=== PATIENT | male | born 1985 | race Caucasian/White ===

== ENCOUNTER → 2019-04-12 | Outpatient (CLI) | payer OTHER | LOC: M.PUL 16:00 | DX: J45.909 Unspecified asthma, uncomplicated (principal) ==

== ENCOUNTER → 2021-01-22 | Outpatient (CLI) | payer OTHER ==
--- NOTE | 2021-01-22 14:31 | 2DMMODE ---
[place] [address] 2 D/M-MODE ECHOCARDIOGRAM Name: BENJAMIN BRO Room: [facility]#: [id number] Admission: 01/22/21 Attend Phys: Archie Cervantes Discharge: Date of : 85 Date of Service: 01/22/21 1431 Report #: [id number] THIS REPORT FOR: cc: Cody Gee MD, Rajesh MD Blick, David R. MD [facility] ~ APPROVED REPORT Study performed: 01/22/2021 11:29:49 EXAM: Comprehensive 2D, Doppler, and color-flow Echocardiogram Patient Location: Out-Patient BSA: 2.30 HR: 65 bpm BP: 120/70 mmHg Other Information Study Quality: Good Indications Palpitations 2D Dimensions IVSd: 11.00 (7-11mm) LVOT Diam: 20.32 (18-24mm) LVDd: 41.99 mm PWd: 9.99 (7-11mm) Ascending Ao: 27.64 (22-36mm) LVDs: 23.49 (25-40mm) Aortic Root: 27.37 mm Volumes Left Atrial Volume (Systole) LA ESV Index: 16.60 mL/m2 Aortic Valve AoV Peak Jeffrey.: 1.10 m/s AO Peak Gr.: 4.84 mmHg LVOT Max P.73 mmHg AO Mean Gr.: 2.89 mmHg LVOT Mean P.77 mmHg LVOT Max V: 0.97 m/s AO V2 VTI: 24.39 cm LVOT Mean V: 0.61 m/s MICHELLE (VTI): 2.81 cm2 LVOT V1 VTI: 21.15 cm Mitral Valve E/A Ratio: 1.43 [place] [address] 2 D/M-MODE ECHOCARDIOGRAM Name: BENJAMIN BRO Room: [facility]#: [id number] Admission: 01/22/21 Attend Phys: Archie Cervantes Discharge: Date of : 85 Date of Service: 01/22/21 1431 Report #: [id number] MV Decel. Time: 194.76 ms MV E Max Jeffrey.: 0.72 m/s MV PHT: 56.48 ms MVA (PHT): 3.90 cm2 TDI E/Lateral E': 5.54 E/Medial E': 4.80 Medial E' Jeffrey.: 0.15 m/s Lateral E' Jeffrey.: 0.13 m/s Pulmonary Valve PV Peak Jeffrey.: 0.83 m/s PV Peak Gr.: 2.74 mmHg Tricuspid Valve RAP Estimate: 5.00 mmHg TR Peak Gr.: 16.27 mmHg RVSP: 21.27 mmHg PA Pressure: 21.27 mmHg Left Ventricle The left ventricle is normal size. There is normal LV segmental wall motion. There is normal left ventricular wall thickness. Left ventricular systolic function is normal. The left ventricular ejection fraction is within the normal range. LVEF is 55-60%. The left ventricular diastolic function is normal. Right Ventricle The right ventricle is normal size. The right ventricular systolic function is normal. Atria The left atrium size is normal. The right atrium size is normal. Aortic Valve The aortic valve is normal in structure. No aortic regurgitation is present. There is no aortic valvular stenosis. Mitral Valve The mitral valve is normal in structure. Mild mitral regurgitation. No evidence of mitral valve stenosis. Tricuspid Valve The tricuspid valve is normal in structure. Mild tricuspid regurgitation. Pulmonic [place] [address] 2 D/M-MODE ECHOCARDIOGRAM Name: BENJAMIN BRO Room: [facility]#: [id number] Admission: 01/22/21 Attend Phys: Archie Cervantes Discharge: Date of : 85 Date of Service: 01/22/21 1431 Report #: [id number] The pulmonary valve is normal in structure. There is no pulmonic valvular regurgitation. Great Vessels The aortic root is normal in size. IVC is normal in size and collapses >50% with inspiration. Pericardium There is no pericardial effusion. <Conclusion> LVEF is 55-60%. Mild mitral regurgitation. <ELECTRONICALLY SIGNED> By: Brad Mcarthur MD, FACC 01/22/21 143 30 30 Brad Mcarthur MD, FACC /INF
== END ==
LOC: M.CRD 12-30 11:00
PROVIDERS: ATTEND Chiropractor
DX: I08.1 Rheumatic disorders of both mitral and tricuspid valves (principal); I25.9 Chronic ischemic heart disease, unspecified